=== PATIENT | female | born 1985 | race Caucasian/White ===

== ENCOUNTER 2018-07-24 13:15 | Inpatient (IN) | payer OTHER ==
[~2018-07-24] VITALS: Ht 165.1 cm; Wt 98.4 kg
[2018-08-07] MEDS ORDERED: SYNTHROID112 MCG PO (07:31)
[2018-08-07] MEDS ORDERED: SYMBICORT 80/10.2 GM IH (07:32)
[2018-08-07] MEDS ORDERED: ZANTAC300 MG PO (07:32)
[2018-08-07] MEDS ORDERED: PRENATAL TABLE1 EAC4 PO (07:32)
[2018-08-07] MEDS ORDERED: IRON325 MG PO (07:33)
== END 2018-08-09 12:10 | disposition home or self-care (01) | DRG 768 ==
LOC: EDBD 08-05 14:31 → LDR 08-05 14:31 → SURG-SUITE 08-07 15:22 → OB/GYN 08-10 13:15
PROVIDERS: ADMIT Obstetrics & Gynecology Maternal & Fetal Medicine
PROC: 4A1HXCZ Monitoring of Products of Conception, Cardiac Rate, External Approach (ICD-10-PCS; 2018-08-05)
PROC: 10E0XZZ Delivery of Products of Conception, External Approach (ICD-10-PCS; principal; 2018-08-07)
PROC: 0UQC7ZZ Repair Cervix, Via Natural or Artificial Opening (ICD-10-PCS; 2018-08-07)
PROC: 3E033VJ Introduction of Other Hormone into Peripheral Vein, Percutaneous Approach (ICD-10-PCS; 2018-08-07)
PROC: 3E0P7VZ Introduction of Hormone into Female Reproductive, Via Natural or Artificial Opening (ICD-10-PCS; 2018-08-07)
DX: O71.3 Obstetric laceration of cervix (principal); Z37.0 Single live birth; O14.03 Mild to moderate pre-eclampsia, third trimester; Z3A.39 39 weeks gestation of pregnancy

== ENCOUNTER 2021-09-14 10:13 | Inpatient (IN) | payer OTHER ==
[~2021-09-14] VITALS: Ht 165.1 cm; Wt 98.0 kg
[~2021-09-14 10:13] MED LIST: IRON325 MG PO; PRENATAL TABLE1 EAC4 PO; SYMBICORT 80/10.2 GM IH; SYNTHROID112 MCG PO; ZANTAC300 MG PO
[2021-10-04] MEDS ORDERED: ARMOUR THYROID120 M1 PO (11:15)
== END 2021-10-06 17:23 | disposition home or self-care (01) | DRG 807 ==
LOC: OB/GYN 10-03 10:13 → LDR 10-04 09:57 → SURG-SUITE 10-04 09:57 → LDR 10-04 10:11 → SURG-SUITE 10-04 16:06
PROVIDERS: ADMIT Obstetrics & Gynecology Maternal & Fetal Medicine; ATTEND Obstetrics & Gynecology Maternal & Fetal Medicine
PROC: 10E0XZZ Delivery of Products of Conception, External Approach (ICD-10-PCS; principal; 2021-10-04)
PROC: 0KQM0ZZ Repair Perineum Muscle, Open Approach (ICD-10-PCS; 2021-10-04)
PROC: 4A1HXCZ Monitoring of Products of Conception, Cardiac Rate, External Approach (ICD-10-PCS; 2021-10-04)
DX: O70.1 Second degree perineal laceration during delivery (principal); Z37.0 Single live birth; Z3A.40 40 weeks gestation of pregnancy; Z20.822 Contact with and (suspected) exposure to COVID-19

== ENCOUNTER 2021-09-28 15:54 | Outpatient (CLI) | payer OTHER | END 2021-09-28 18:25 | disposition home or self-care (01) | LOC: NST 15:54 | PROVIDERS: ATTEND Obstetrics & Gynecology Maternal & Fetal Medicine | DX: Z34.83 Encounter for supervision of other normal pregnancy, third trimester (principal) ==

== ENCOUNTER 2021-10-02 10:26 | Outpatient (CLI) | payer OTHER | END 2021-10-02 11:03 | disposition home or self-care (01) | LOC: NST 10:26 | PROVIDERS: ATTEND Obstetrics & Gynecology Maternal & Fetal Medicine | DX: Z34.83 Encounter for supervision of other normal pregnancy, third trimester (principal) ==

== ENCOUNTER 2023-12-31 13:41 | Outpatient (CLI) | payer OTHER ==
[~2023-12-31 13:41] MED LIST changes: +ARMOUR THYROID120 M1 PO; +LABETALOL HCL200 MG PO; +[UNRECOGNIZED DRUG - OTHER] PO
== END 2023-12-31 13:45 | disposition home or self-care (01) ==
LOC: LAB 13:41
PROVIDERS: ATTEND Anesthesiology
DX: Z30.2 Encounter for sterilization (principal)

== ENCOUNTER 2024-01-01 06:46 | Day surgery (SDC) | payer OTHER ==
[2023-12-04 10:42] LABS: HEMATOCRIT 35.4 % (36.0-45.00); HEMOGLOBIN 11.6 g/dL (12.0-15.00); MEAN CELL VOLUME 76.1 fL (80.00-100.00); MEAN CORPUSCULAR HEMOGLOBIN 24.8 pg (27.00-32.0); MEAN CORPUSCULAR HGB CONC 32.6 g/dl (32.0-36.0); PLATELET COUNT 355 K/uL (150-450); RED BLOOD COUNT 4.66 M/uL (4.00-6.00); RED CELL DISTRIBUTION WIDTH 14.1 % (11.5-14.5)
[2023-12-04 11:09] VITALS: BP 125/86
[2023-12-04 11:12] LABS: INR 0.95; PARTIAL THROMBOPLASTIN TIME 28.2 SECONDS (22.0-34.0)
[2023-12-04 11:25] LABS: ALBUMIN 3.5 gm/dL (3.4-5.0); BILIRUBIN TOTAL 0.32 mg/dL (0.3-1.2); CALCIUM 9.4 mg/dL (8.5-10.1); CREATININE SERUM 0.72 mg/dL (0.55-1.02); GFR 89.71; GLOBULINA 3.6 G/DL (2.4-3.5); POTASSIUM 4.42 mEq/L (3.5-5.1); TOTAL PROTEIN 7.1 gm/dL (6.4-8.2)
[~2024-01-01] VITALS: Ht 165.1 cm; Wt 86.2 kg
[2024-01-01] MEDS ORDERED: KETOROLAC TROMETHAMINE 60 MG VIAL IM STA (10:09)
[2024-01-01] MEDS ORDERED: RINGERS SOLUTION,LACTATED 1,000 ML IV SCH (10:15)
[2024-01-01] MEDS ORDERED: KETOROLAC TROMETHAMINE 60 MG VIAL IM ONE (12:08)
== END 2024-01-01 12:50 | disposition home or self-care (01) ==
LOC: CIR.AMB 06:46 → U 06:46 → CIR.AMB 07:00
PROVIDERS: ATTEND Obstetrics & Gynecology
DX: N83.8 Other noninflammatory disorders of ovary, fallopian tube and broad ligament (principal); Z30.2 Encounter for sterilization; Z91.013 Allergy to seafood; Z88.5 Allergy status to narcotic agent

== ENCOUNTER → 2025-05-08 | Emergency (ER) | payer OTHER ==
[~2025-05-08] VITALS: Ht 165.1 cm; Wt 65.8 kg
[~2025-05-08] MED LIST changes: +DEXAMETHASONE SODIUM PHOSPHATE 4 MG/ML VIAL IM STA; +KETOROLAC TROMETHAMINE 30 MG VIAL IM STA; +ORPHENADRINE CITRATE 30 MG/ML AMPUL IM STA
== END | disposition home or self-care (01) ==
LOC: ER 09:38
DX: M43.6 Torticollis (principal); Z91.013 Allergy to seafood; Z88.8 Allergy status to other drugs, medicaments and biological substances